=== PATIENT | female | born 1940 ===

== ENCOUNTER 2018-06-23 08:14 | Day surgery (SDC) | payer MEDICAID ==
[2018-06-23] MEDS ORDERED: Lactated Ringer's 500 ML IV ONE (09:02)
[2018-06-23] MEDS ORDERED: Midazolam 2 MG/2 ML VIAL ONE (11:14)
[2018-06-23] MEDS ORDERED: Propofol 10 mg/ml Inj (20 ML) ONE (11:15)
[2018-06-23] MEDS ORDERED: Etomidate 20 mg/10ml Inj IV ONE (11:16)
[2018-06-23 11:59] VITALS: TEMP 97; O2SAT 99
[2018-06-23 12:11] VITALS: BP 116/61; PULSE 75; RESP 14
== END 2018-06-23 13:00 | disposition home or self-care (01) ==
LOC: H.ENDO 08:14
PROVIDERS: ATTEND Internal Medicine Gastroenterology
DX: K57.30 Diverticulosis of large intestine without perforation or abscess without bleeding (principal); K25.9 Gastric ulcer, unspecified as acute or chronic, without hemorrhage or perforation; K44.9 Diaphragmatic hernia without obstruction or gangrene; K21.9 Gastro-esophageal reflux disease without esophagitis; K29.50 Unspecified chronic gastritis without bleeding; K64.8 Other hemorrhoids; I10 Essential (primary) hypertension; E55.9 Vitamin D deficiency, unspecified
CPT/HCPCS: 43239; 45378; 88305; 88342; J2001; J2250; J2704; J7120